=== PATIENT | female | born 1945 | race Caucasian/White ===

== ENCOUNTER 2019-06-02 19:37 | Observation (INO) ==
[2019-06-02] MEDS ORDERED: Isovue-370 500 ML BOTTLE IVP ONE (20:28)
[2019-06-02] MEDS ORDERED: 0.9 % Sodium Chloride 1,000 ML IVC ONE (20:28)
[2019-06-02 20:39] LABS: Hematocrit 25.1 % (35.3-44.9); Hemoglobin 7.9 g/dL (11.5-15.4); Immature Platelets 11.4 % (1.1-6.1); Mean Corpuscular HGB Conc 31.5 g/dL (31.6-35.5); Mean Corpuscular Hemoglobin 28.4 pg (28.0-33.3); Mean Corpuscular Volume 90.3 fL (83.0-100.0); Nucleated Red Blood Cells 4.3 /100 WBC (0); Red Blood Count 2.78 M/mcL (3.82-4.97); Red Cell Distribution Width 19.2 % (11.5-14.5); White Blood Count 20.9 K/mcL (4.3-11.1)
[2019-06-02 20:51] LABS: INR 1.3; Prothrombin Time 14.9 Seconds (9.4-12.1)
[2019-06-02 20:54] LABS: Activated Partial Thrombo Time 24.7 Seconds (26.0-36.0)
[2019-06-02 20:58] LABS: Calcium 8.7 mg/dL (8.6-10.3); Potassium 3.9 mEq/L (3.5-5.1)
[2019-06-02 21:05] LABS: Albumin 4.3 g/dL (3.5-5.7); Albumin/Globulin Ratio 1.6 (1.1-2.2); Bilirubin,Direct 0.1 mg/dL (0.0-0.2); Bilirubin,Indirect 0.3 mg/dL (0.0-1.0); Bilirubin,Total 0.4 mg/dL (0.3-1.0); Globulin 2.7 g/dL (2.4-3.5)
[2019-06-02 21:26] LABS: Platelet Count 29 K/mcL (140-400)
[2019-06-02 21:32] LABS: Anisocytosis 1+ (Not Present); Hypochromasia Present (Not Present); Lymphocytes # 12.5 K/mcL (0.6-4.6); Monocytes # 2.9 K/mcL (0.0-1.3); Neutrophils # 2.1 K/mcL (1.6-8.9); Platelet Estimate Marked Decrease (Normal)
[2019-06-02] MEDS ORDERED: 0.9 % Sodium Chloride 250 ML ONE (22:25)
[2019-06-03] MEDS ORDERED: 0.9 % Sodium Chloride 250 ML ONE ×2 (01:46→04:50)
[2019-06-03] MEDS: Pantoprazole 40 MG VIAL IVP SCH ×2 (05:00→17:23)
[2019-06-03] MEDS ORDERED: Azithromycin 500 MG in 0.9 % Sodium Chloride 250 ML IVPB SCH (09:00)
[2019-06-03 09:10] LABS: Hematocrit 30.7 % (35.3-44.9); Mean Corpuscular HGB Conc 32.6 g/dL (31.6-35.5); Mean Platelet Volume 9.6 fL (9.4-12.4); Nucleated Red Blood Cells 1.6 /100 WBC (0); Red Blood Count 3.57 M/mcL (3.82-4.97); Red Cell Distribution Width 18.3 % (11.5-14.5)
[2019-06-03 09:13] LABS: Platelet Count 66 K/mcL (140-400)
[2019-06-03 09:23] LABS: White Blood Count 37.6 K/mcL (4.3-11.1)
[2019-06-03 09:27] LABS: Alanine Aminotransferase 18 Units/L (7-52); Albumin 3.8 g/dL (3.5-5.7); Albumin/Globulin Ratio 1.5 (1.1-2.2); Alkaline Phosphatase 69 Units/L (34-104); Aspartate Amino Transferase 94 Units/L (13-39); BUN/Creatinine Ratio 26 (6-26); Bilirubin,Total 0.4 mg/dL (0.3-1.0); Blood Urea Nitrogen 23 mg/dL (8-23); Calcium 8.3 mg/dL (8.6-10.3); Carbon Dioxide 19 mEq/L (23-29); Chloride 110 mEq/L (98-107); Globulin 2.6 g/dL (2.4-3.5); Glucose 85 mg/dL (70-105); Osmolality,Calculated 293 (280-300); Potassium 3.6 mEq/L (3.5-5.1); Sodium 140 mEq/L (136-145); Total Protein 6.4 g/dL (6.4-8.9); eGFR For African Americans > 60 (> 60); eGFR For Non-African Americans > 60 (> 60)
[2019-06-03 09:34] LABS: Lymphocytes # 30.1 K/mcL (0.6-4.6); Neutrophils # 1.5 K/mcL (1.6-8.9); Platelet Estimate Decreased (Normal)
[2019-06-03 09:35] LABS: Anisocytosis 1+ (Not Present)
[2019-06-03 12:45] LABS: Mean Corpuscular Hemoglobin 28.2 pg (28.0-33.3); Nucleated Red Blood Cells 1.4 /100 WBC (0)
[2019-06-03 12:47] LABS: Hematocrit 30.9 % (35.3-44.9); Hemoglobin 9.6 g/dL (11.5-15.4); Mean Corpuscular HGB Conc 31.1 g/dL (31.6-35.5); Mean Corpuscular Volume 90.6 fL (83.0-100.0); Mean Platelet Volume 9.3 fL (9.4-12.4); Red Blood Count 3.41 M/mcL (3.82-4.97); Red Cell Distribution Width 18.7 % (11.5-14.5)
[2019-06-03 12:54] LABS: Adenovirus F 40/41 PCR Not detected (Not detect); Astrovirus PCR Not detected (Not detect); C.difficile Toxin A/B Gene PCR Not detected (Not detect); Campylobacter by PCR Not detected (Not detect); Cryptosporidium by PCR Not detected (Not detect); Cyclospora cayetanensis PCR Not detected (Not detect); E. coli O157 by PCR Not detected (Not detect); Entamoeba histolytica PCR Not detected (Not detect); Enteroaggregative E.coli(EAEC) Not detected (Not detect); Enteropathogenic E.coli(EPEC) Not detected (Not detect); Enterotoxigenic E.coli (ETEC) Not detected (Not detect); Giardia lamblia PCR Not detected (Not detect); Norovirus GI/GII PCR Not detected (Not detect); Plesiomonas shigelloides PCR Not detected (Not detect); Rotavirus A PCR Not detected (Not detect); Salmonella PCR Not detected (Not detect); Sapovirus PCR Not detected (Not detect); Shig/EnteroinvasiveE coli EIEC Not detected (Not detect); Shigalike tox-prod E coli STEC Not detected (Not detect); Vibrio PCR Not detected (Not detect); Vibrio cholerae PCR Not detected (Not detect); Yersinia enterocolitica PCR Not detected (Not detect)
[2019-06-03] MEDS: GuaiFENesin Liq 200 MG/10 ML UDC PO PRN (13:17)
[2019-06-03 13:18] LABS: Platelet Count 61 K/mcL (140-400)
[2019-06-03 13:19] LABS: White Blood Count 34.8 K/mcL (4.3-11.1)
[2019-06-03 13:58] LABS: Lymphocytes # 21.6 K/mcL (0.6-4.6); Monocytes # 5.6 K/mcL (0.0-1.3); Neutrophils # 1.4 K/mcL (1.6-8.9); Platelet Estimate Decreased (Normal)
[2019-06-03] MEDS: Benzonatate 100 MG CAPSULE PO PRN (19:21)
[2019-06-03] MEDS: carBAMazepine 200 MG TABLET PO SCH (21:44)
[2019-06-03] MEDS: Latanoprost 2.5 ML BOTTLE RIGHT EYE SCH (21:44)
[2019-06-04 01:56] LABS: Immature Reticulocyte % 28.3 % (11.0-38.0); Retculocyte # 0.05 M/mcL (0.05-0.10); Reticulocyte % 1.5 % (1.6-2.8)
[2019-06-04 01:57] LABS: Hematocrit 32.1 % (35.3-44.9); Hemoglobin 10.3 g/dL (11.5-15.4); Mean Corpuscular HGB Conc 32.1 g/dL (31.6-35.5); Mean Corpuscular Hemoglobin 27.8 pg (28.0-33.3); Mean Corpuscular Volume 86.5 fL (83.0-100.0); Mean Platelet Volume 9.4 fL (9.4-12.4); Nucleated Red Blood Cells 0.9 /100 WBC (0); Red Blood Count 3.71 M/mcL (3.82-4.97)
[2019-06-04 02:15] LABS: BUN/Creatinine Ratio 16 (6-26); Blood Urea Nitrogen 13 mg/dL (8-23); Calcium 8.4 mg/dL (8.6-10.3); Carbon Dioxide 19 mEq/L (23-29); Chloride 112 mEq/L (98-107); Glucose 68 mg/dL (70-105); Osmolality,Calculated 288 (280-300); Potassium 3.4 mEq/L (3.5-5.1); Sodium 140 mEq/L (136-145); eGFR For African Americans > 60 (> 60); eGFR For Non-African Americans > 60 (> 60)
[2019-06-04 02:24] LABS: Platelet Count 56 K/mcL (140-400)
[2019-06-04 02:29] LABS: White Blood Count 42.9 K/mcL (4.3-11.1)
[2019-06-04 02:38] LABS: % Iron Saturation 85 % (15-50); Iron 189 mcg/dL (50-170); Lactate Dehydrogenase > 3600 Units/L (140-271); Transferrin 159 mg/dL (203-362)
[2019-06-04 02:50] LABS: Lymphocytes # 11.2 K/mcL (0.6-4.6); Monocytes # 12.9 K/mcL (0.0-1.3); Neutrophils # 1.7 K/mcL (1.6-8.9)
[2019-06-04 02:51] LABS: Anisocytosis 1+ (Not Present); Platelet Estimate Decreased (Normal); Reactive Lymphocytes Present (Not Present)
[2019-06-04] MEDS: Pantoprazole 40 MG VIAL IVP SCH ×2 (05:40→23:35)
[2019-06-04] MEDS ORDERED: Lidocaine -MPF 2% 2 ML VIAL ONE (11:30)
[2019-06-04] MEDS ORDERED: *HR* Propofol 200 MG/20 ML VIAL IVP ONE (11:31)
[2019-06-04] MEDS: Latanoprost 2.5 ML BOTTLE RIGHT EYE SCH (20:14)
[2019-06-04] MEDS: Doxycycline 100 MG CAPSULE PO SCH ×2 (20:14→21:52)
[2019-06-04] MEDS: carBAMazepine 200 MG TABLET PO SCH ×2 (20:14→21:52)
[2019-06-04] MEDS: Benzonatate 100 MG CAPSULE PO PRN (21:53)
[2019-06-05] MEDS ORDERED: *HR* HYDROcodone/Acet 5/325 mg TABLET PO ONE
[2019-06-05 03:13] LABS: BUN/Creatinine Ratio 13 (6-26); Blood Urea Nitrogen 11 mg/dL (8-23); Calcium 7.7 mg/dL (8.6-10.3); Carbon Dioxide 16 mEq/L (23-29); Chloride 113 mEq/L (98-107); Glucose 68 mg/dL (70-105); Osmolality,Calculated 286 (280-300); Potassium 3.1 mEq/L (3.5-5.1); Sodium 139 mEq/L (136-145); eGFR For African Americans > 60 (> 60); eGFR For Non-African Americans > 60 (> 60)
[2019-06-05 04:51] LABS: Hematocrit 29.2 % (35.3-44.9); Hemoglobin 9.5 g/dL (11.5-15.4); Mean Corpuscular HGB Conc 32.5 g/dL (31.6-35.5); Mean Corpuscular Hemoglobin 28.3 pg (28.0-33.3); Mean Corpuscular Volume 86.9 fL (83.0-100.0); Mean Platelet Volume 10.6 fL (9.4-12.4); Red Blood Count 3.36 M/mcL (3.82-4.97); Red Cell Distribution Width 19.2 % (11.5-14.5)
[2019-06-05 04:54] LABS: White Blood Count 37.3 K/mcL (4.3-11.1)
[2019-06-05 04:55] LABS: Platelet Count 38 K/mcL (140-400)
[2019-06-05] MEDS: Pantoprazole 40 MG VIAL IVP SCH ×2 (05:51→17:46)
[2019-06-05] MEDS: Doxycycline 100 MG CAPSULE PO SCH (10:34)
[2019-06-05] MEDS: carBAMazepine 200 MG TABLET PO SCH ×2 (10:34→21:01)
[2019-06-05] MEDS ORDERED: Ipratropium/Albuterol Neb 3 ML ONE (11:19)
[2019-06-05] MEDS: Ipratropium/Albuterol Neb 3 ML IH SCH ×3 (11:20→21:56)
[2019-06-05] MEDS ORDERED: Isovue-370 500 ML BOTTLE IVP ONE (15:00)
[2019-06-05] MEDS ORDERED: Acetaminophen 325 MG TABLET PO ONE (20:30)
[2019-06-05] MEDS: Latanoprost 2.5 ML BOTTLE RIGHT EYE SCH (21:01)
[2019-06-06] MEDS: Ipratropium/Albuterol Neb 3 ML IH SCH ×3 (04:18→15:38)
[2019-06-06] MEDS: Pantoprazole 40 MG VIAL IVP SCH (05:44)
[2019-06-06 06:57] LABS: Hematocrit 30.8 % (35.3-44.9)
[2019-06-06 06:59] LABS: Hemoglobin 9.7 g/dL (11.5-15.4); Mean Corpuscular HGB Conc 31.5 g/dL (31.6-35.5); Mean Corpuscular Volume 88.8 fL (83.0-100.0); Nucleated Red Blood Cells 0.5 /100 WBC (0); Red Blood Count 3.47 M/mcL (3.82-4.97); Red Cell Distribution Width 19.3 % (11.5-14.5)
[2019-06-06 07:21] LABS: BUN/Creatinine Ratio 20 (6-26); Blood Urea Nitrogen 18 mg/dL (8-23); Carbon Dioxide 17 mEq/L (23-29); Chloride 113 mEq/L (98-107); Glucose 97 mg/dL (70-105); Osmolality,Calculated 290 (280-300); Potassium 3.5 mEq/L (3.5-5.1); Sodium 139 mEq/L (136-145); eGFR For African Americans > 60 (> 60); eGFR For Non-African Americans > 60 (> 60)
[2019-06-06 08:08] LABS: Platelet Count 20 K/mcL (140-400); White Blood Count 35.9 K/mcL (4.3-11.1)
[2019-06-06] MEDS: carBAMazepine 200 MG TABLET PO SCH (08:40)
[2019-06-06 08:46] LABS: Monocytes # 0.7 K/mcL (0.0-1.3); Neutrophils # 0.7 K/mcL (1.6-8.9)
[2019-06-06 08:47] LABS: Platelet Estimate Marked Decrease (Normal)
[2019-06-06 08:49] LABS: Anisocytosis 2+ (Not Present)
[2019-06-06 08:50] LABS: Microcytosis Present (Not Present); Poikilocytosis 1+ (Not Present)
[2019-06-06] MEDS ORDERED: 0.9 % Sodium Chloride 250 ML ONE (09:18)
[2019-06-06 12:32] VITALS: BP 171/81
[2019-06-06] MEDS: GuaiFENesin Liq 200 MG/10 ML UDC PO PRN (12:33)
[2019-06-06 14:06] LABS: Hematocrit 30.9 % (35.3-44.9); Hemoglobin 9.8 g/dL (11.5-15.4); Mean Corpuscular HGB Conc 31.7 g/dL (31.6-35.5); Mean Corpuscular Hemoglobin 28.2 pg (28.0-33.3); Mean Corpuscular Volume 88.8 fL (83.0-100.0); Mean Platelet Volume 9.4 fL (9.4-12.4); Nucleated Red Blood Cells 0.7 /100 WBC (0); Red Blood Count 3.48 M/mcL (3.82-4.97); Red Cell Distribution Width 19.4 % (11.5-14.5)
[2019-06-06 14:12] LABS: Platelet Count 53 K/mcL (140-400)
[2019-06-06 14:13] LABS: White Blood Count 35.1 K/mcL (4.3-11.1)
[2019-06-06 14:48] LABS: Lymphocytes # 22.5 K/mcL (0.6-4.6); Monocytes # 0.4 K/mcL (0.0-1.3); Neutrophils # 1.1 K/mcL (1.6-8.9)
[2019-06-06 14:49] LABS: Platelet Estimate Decreased (Normal)
[2019-06-06 14:50] LABS: Anisocytosis 1+ (Not Present)
== END 2019-06-06 16:30 | disposition home or self-care (01) ==
LOC: 2ANU 19:37 → EMEROOARM 19:37 → SUATTDRO 23:34 → 2ANU 06-03
PROVIDERS: ADMIT Internal Medicine; ATTEND Family Medicine